=== PATIENT | female | born 1960 | race Caucasian/White ===

== ENCOUNTER 2020-03-30 09:41 | Inpatient (IN) | payer BC ==
[~2020-03-30] VITALS: Ht 152 cm; Wt 87.1 kg
[2020-03-30] MEDS ORDERED: NS IV 1000 ML 1,000 ML IV STA (09:52)
--- NOTE | 2020-03-30 09:56 | ED Syncope ---
General Stated Complaint: SYNCOPE Source of Information: Patient, Caregiver, RN/MD, RN Notes Reviewed Exam Limitations: No Limitations History of Present Illness Date Seen by Provider: March 30, 2020 Time Seen by Provider: 09:40 Initial Comments This patient is a 59-year-old female that presents to the emergency department for syncopal episode that happened while she was in the [facility] clinic next-door. Patient's been having issues with dark stool for the past couple weeks and also notes some blood this morning. Patient was sitting in a wheelchair trying to get up and had a syncopal episode. Patient states she does have a history of severe reflux issues and has to take Tums regularly. Patient denies having a history of taking a colonoscopy. Patient denies history of GI bleed. Patient states that she hasn't felt well in her stomach for the past couple weeks and had these dark stools. Having issues with lightheadedness for the past several days. Patient was recently started on iron due to anemia. Patient is awake alert and has no significant complaints right now. Patient states that she does have a history of hypertension and didn't take her hypertension medications this morning. On exam patient's blood pressure is 104/70. Patient states her blood pressure several about low. We'll do medical evaluation treatment is needed. Patient denies chest pain or headache. Timing/Prior Episodes: No Prior History Symptoms Prior to Episode: Lightheadedness, Nausea Precipitating Factors: Standing Loss of Consciousness: Brief (Seconds) Current Symptoms: Back to Normal; No Blurred Vision, No Chest Pain, No Diaphoresis, No Dizziness, No Headache, No Injury, No Lightheadedness, No Loss of Bladder Control, No Loss of Bowel Control, No Motionless, No Nausea, No Pale, No Shallow/Rapid Breathing, No Weak/Absent Pulse, No Weakness, No Other Allergies and Home Medications Allergies Coded Allergies: Penicillins (Unverified Adverse Reaction, Mild, rash, 03/30/20) lorcaserin (Unverified Adverse Reaction, Mild, Flu like symptoms, 03/30/20) naproxen (Unverified Adverse Reaction, Mild, Leg cramps, 03/30/20) Patient Home Medication List Home Medication List Reviewed: Yes Review of Systems Constitutional: No no symptoms reported; see HPI; No chills, No diaphoresis, No dizziness, No fever, No malaise, No weakness, No weight gain, No weight loss, No other EENTM: No see HPI, No no symptoms reported, No ear discharge, No hearing loss, No ear pain, No blurred vision, No double vision, No eye pain, No tearing, No vision loss, No dental problems, No hoarseness, No mouth pain, No mouth swelling, No epistaxis, No nose congestion, No nose pain, No throat pain, No throat swelling, No other Respiratory: No no symptoms reported, No see HPI, No cough, No dyspnea on e xertion, No hemoptysis, No orthopnea, No phlegm, No short of breath, No stridor, No wheezing, No other Cardiovascular: No no symptoms reported, No see HPI, No chest pain, No edema, No Hx of Intervention, No palpitations, No syncope, No vascular heart diseas, No other Gastrointestinal: No RUQ, No LUQ, No RLQ, No LLQ, No no symptoms reported, No see HPI, No abdominal pain, No constipation, No diarrhea, No dysphagia, No hematemesis, No heartburn, No jaundice, No loss of appetite; melena; No nausea, No vomiting, No other Musculoskeletal: No no symptoms reported, No see HPI, No back pain, No gout, No joint pain, No joint swelling, No muscle pain, No muscle stiffness, No muscle cramps, No muscle twitching, No muscle weakness, No neck pain, No other Skin: No no symptoms reported, No see HPI, No change in color, No change in hair/nails, No dryness, No hx of skin cancer, No lesions, No lumps, No pruritus, No rash, No other Psychiatric/Neurological: Denies No Symptoms Reported; See HPI; Denies Anxiety, Denies Depressed, Denies Emotional Problems, Denies Headache, Denies Numbness, Denies Paresthesia, Denies Pre-Existing Deficit, Denies Seizure, Denies Tingling, Denies Tremors; Weakness, Other All Other Systems Reviewed Negative Unless Noted: Yes Physical Exam Vital Signs Vital Signs - First Documented 03/30/20 09:41 Temp 35.9 Pulse 76 Resp 20 B/P (MAP) 101/58 (72) Pulse Ox 97 O2 Delivery Room Air Capillary Refill : Height, Weight, BMI Height: '" Weight: lbs. oz. kg; BMI Method: General Appearance: No Apparent Distress, WD/WN HEENT: PERRL/EOMI, TMs Normal, Normal ENT Inspection, Pharynx Normal Neck: Full Range of Motion, Normal Inspection, Non Tender, Supple Cardiovascular: Regular Rate, Rhythm, No Edema, No Gallop, No JVD, No Murmur, Normal Peripheral Pulses Respiratory: Chest Non Tender, Lungs Clear, Normal Breath Sounds, No Accessory Muscle Use, No Respiratory Distress Gastrointestinal: Normal Bowel Sounds, No Organomegaly, No Pulsatile Mass, Non Tender, Soft Neurologic/Psychiatric: Alert, Oriented x3, No Motor/Sensory Deficits, Normal Mood/Affect Coordination/Gait: Normal Finger to Nose, Normal Gait, Negative Romberg's Sign Motor/Sensory: No Motor Deficit, No Sensory Deficit, No Pronator Drift Skin: Normal Color, Warm/Dry Progress/Results/Core Measures Results/Orders Lab Results Laboratory Tests Test 03/30/20 09:50 Range/Units White Blood Count 6.8 4.3-11.0 10^3/uL Red Blood Count 3.44 L 4.35-5.85 10^6/uL Hemoglobin 9.6 L 11.5-16.0 G/DL Hematocrit 30 L 35-52 % Mean Corpuscular Volume 86 80-99 FL Mean Corpuscular Hemoglobin 28 25-34 PG Mean Corpuscular Hemoglobin Concent 33 32-36 G/DL Red Cell Distribution Width 17.4 H 10.0-14.5 % Platelet Count 360 130-400 10^3/uL Mean Platelet Volume 10.1 7.4-10.4 FL Neutrophils (%) (Auto) 46 42-75 % Lymphocytes (%) (Auto) 43 12-44 % Monocytes (%) (Auto) 8 0-12 % Eosinophils (%) (Auto) 2 0-10 % Basophils (%) (Auto) 1 0-10 % Neutrophils # (Auto) 3.1 1.8-7.8 X 10^3 Lymphocytes # (Auto) 3.0 1.0-4.0 X 10^3 Monocytes # (Auto) 0.5 0.0-1.0 X 10^3 Eosinophils # (Auto) 0.1 0.0-0.3 10^3/uL Basophils # (Auto) 0.1 0.0-0.1 10^3/uL Prothrombin Time 12.6 12.2-14.7 SEC INR Comment 0.9 0.8-1.4 Sodium Level 136 135-145 MMOL/L Potassium Level 4.1 3.6-5.0 MMOL/L Chloride Level 99 98-107 MMOL/L Carbon Dioxide Level 23 21-32 MMOL/L Anion Gap 14 5-14 MMOL/L Blood Urea Nitrogen 30 H 7-18 MG/DL Creatinine 0.76 0.60-1.30 MG/DL Estimat Glomerular Filtration Rate > 60 BUN/Creatinine Ratio 39 Glucose Level 157 H 70-105 MG/DL Calcium Level 9.6 8.5-10.1 MG/DL Corrected Calcium 9.7 8.5-10.1 MG/DL Total Bilirubin 0.3 0.1-1.0 MG/DL Aspartate Amino Transf (AST/SGOT) 15 5-34 U/L Alanine Aminotransferase (ALT/SGPT) 11 0-55 U/L Alkaline Phosphatase 63 40-136 U/L Troponin I < 0.30 <0.30 NG/ML Total Protein 6.5 6.4-8.2 GM/DL Albumin 3.9 3.2-4.5 GM/DL Amylase Level 113 25-125 U/L Lipase 69 8-78 U/L My Orders Orders - CHACHO MACDONALD MD Comprehensive Metabolic Panel (03/30/20 09:48) Lipase (03/30/20 09:48) Amylase (03/30/20 09:48) Ua Culture If Indicated (03/30/20 09:48) Ed Iv/Invasive Line Start (03/30/20 09:48) Acute Abd Series (03/30/20 09:48) Cbc With Automated Diff (03/30/20 09:48) Ekg Tracing (03/30/20 09:48) Orthostatic Vital Signs (Adult (03/30/20 09:48) Protime With Inr (03/30/20 09:48) Occult Blood Stool (03/30/20 09:48) Troponin I Fs (03/30/20 09:48) Ns Iv 1000 Ml (Sodium Chloride 0.9%) (03/30/20 09:52) Ct Head Wo (03/30/20 09:56) Ondansetron Injection (Zofran Injectio (03/30/20 10:14) Ondansetron Injection (Zofran Injectio (03/30/20 10:30) Medications Given in ED Current Medications Medications Dose Ordered Sig/Stew Route Start Time Stop Time Status Last Admin Dose Admin Ondansetron HCl 4 mg ONCE ONCE IVP 03/30/20 10:30 03/30/20 10:31 DC 03/30/20 10:45 4 MG Vital Signs/I&O 03/30/20 09:41 Temp 35.9 Pulse 76 Resp 20 B/P (MAP) 101/58 (72) Pulse Ox 97 O2 Delivery Room Air Progress Progress Note : Time: 10:05 Progress Note 1005 guaiac appears to be positive. 1025 patient getting upright x-rays in the x-ray department and had another syncopal episode. Patient placed back and spine position on stretcher patient feeling much better. Patient screwed describes significant lightheadedness and nausea. Patient has had no nausea. [address] scan the head negative x-rays. H&H is 9.6 and 30. Patient still complains of lightheadedness with sitting up. Concerning for possible significant hypovolemia related to a GI bleed. The patient's description of dark stools for the past 2 weeks. Believe the H&H most likely drop with fluid hydration. I did discuss at length with Dr. Flores library information technician physician for [facility] clinic for admission and [facility] she has accepted this patient for transfer. She request we notify general surgery for possible evaluation for colonoscopy and EGD. I did discuss at length with Dr. Tapia is agreed to see the patient. Patient be transferred via EMS to [facility]. Initial ECG Impression Date: March 30, 2020 Initial ECG Impression Time: 09:50 Initial ECG Rate: 77 Initial ECG Rhythm: Normal Sinus Initial ECG Intervals: Normal Initial ECG Impression: Normal Departure Impression Primary Impression: Syncope due to orthostatic hypotension Additional Impressions: GI bleed Weakness Disposition: XFER SHT-TRM HOSP Condition: Stable Admissions Decision to Admit Reason: Admit from ER (General) Decision to Admit/Date: March 30, 2020 Time/Decision to Admit Time: 11:40 Transfer Transfer Reason: Exceeds level of care Time Spoke to Accepting Phy: 11:[address] Flores and [facility]. Transfer Time: 11:40 Transfer Facility: [facility] Method of Transfer: EMS Departure-Patient Inst. Referrals: [facility] (PCP) Primary Care Physician SUKHJINDER CABALLERO APRN (Family) Primary Care Physician CHACHO MACDONALD MD March 30, 2020 09:56
[2020-03-30 10:01] LABS: HEMATOCRIT 30 % (35-52); HEMOGLOBIN 9.6 G/DL (11.5-16.0); MEAN CORPUSCULAR HEMOGLOBIN 28 PG (25-34); MEAN CORPUSCULAR HGB CONC 33 G/DL (32-36); MEAN CORPUSCULAR VOLUME 86 FL (80-99); PLATELET COUNT 360 10^3/uL (130-400); RED CELL DISTRIBUTION WIDTH 17.4 % (10.0-14.5); WHITE BLOOD COUNT 6.8 10^3/uL (4.3-11.0)
[2020-03-30 10:02] LABS: BASOPHILS # (AUTO) 0.1 10^3/uL (0.0-0.1); BASOPHILS % (AUTO) 1 % (0-10); EOSINOPHILS # (AUTO) 0.1 10^3/uL (0.0-0.3); EOSINOPHILS % (AUTO) 2 % (0-10); LYMPHOCYTES % (AUTO) 43 % (12-44); MEAN PLATELET VOLUME 10.1 FL (7.4-10.4); MONOCYTES # (AUTO) 0.5 X 10^3 (0.0-1.0); MONOCYTES % (AUTO) 8 % (0-12); NEUTROPHILS # (AUTO) 3.1 X 10^3 (1.8-7.8); NEUTROPHILS % (AUTO) 46 % (42-75)
[2020-03-30] MEDS ORDERED: ONDANSETRON 4 MG/2 ML (SDV) Z0FRAN ONE (10:14)
--- OUTSIDE RECORDS SUMMARY | 2020-03-30 10:15 | XMS REPORT | Continuity of Care Document ---
Demographics Preferred Language Unknown Marital Status Unknown Yarsani Affiliation Unknown Race Unknown Ethnic Group Unknown Author Organization Unknown Address Unknown Phone Unavailable Allergies There is no data. Medications There is no data. Problems There is no data. Procedures There is no data. Results Test Result Range Complete blood count (CBC) with automate d white blood cell (WBC) differential - 03/30/20 09:50 Blood leukocytes automated count (number/volume) 6.8 10*3/uL 4.3-11.0 Blood erythrocytes automated count (number/volume) 3.44 10*6/uL 4.35-5.85 Venous blood hemoglobin measurement (mass/volume) 9.6 g/dL 11.5-16.0 Blood hematocrit (volume fraction) 30 % 35-52 Automated erythrocyte mean corpuscular volume 86 [ foz_us] 80-99 Automated erythrocyte mean corpuscular h emoglobin (mass per erythrocyte) 28 pg 25-34 Automated erythrocyte mean corpuscular h emoglobin concentration measurement (mass/volume) 33 g/dL 32-36 Automated erythrocyte distribution width ratio 17. 4 % 10.0- 14.5 Automated blood platelet count (count/volume) 360 10*3/uL 130-400 Automated blood platelet mean volume measurement 10.1 [foz_us] 7.4-10.4 Automated blood neutrophils/100 leukocytes 46 % 42-75 Automated blood lymphocytes/100 leukocytes 43 % 12-44 Blood monocytes/100 leukocytes 8 % 0-12 Automated blood eosinophils/100 leukocytes 2 % 0-10 Automated blood basophils/100 leukocytes 1 % 0-10 Blood neutrophils automated count (number/volume) 3.1 10*3 1.8-7.8 Blood lymphocytes automated count (number/volume) 3.0 10*3 1.0-4.0 Blood monocytes automated count (number/volume) 0. 5 10*3 0.0-1.0 Automated eosinophil count 0.1 10*3/uL 0 .0-0.3 Automated blood basophil count (count/volume) 0.1 10*3/uL 0.0-0.1 Encounters ACCT No. Visit Date/Time Discharge Status Pt. Type Provider Facility Loc./Unit Complaint [id number] 03/30/2020 10:03:00 Document Registration
[2020-03-30 10:27] LABS: SODIUM 136 MMOL/L (135-145)
[2020-03-30 10:28] LABS: ALANINE AMINOTRANSFERASE 11 U/L (0-55); ALBUMIN 3.9 GM/DL (3.2-4.5); ALKALINE PHOSPHATASE 63 U/L (40-136); AMYLASE 113 U/L (25-125); BILIRUBIN,TOTAL 0.3 MG/DL (0.1-1.0); BUN/CREATININE RATIO 39; CALCIUM 9.6 MG/DL (8.5-10.1); CARBON DIOXIDE 23 MMOL/L (21-32); CHLORIDE 99 MMOL/L (98-107); CREATININE SERUM 0.76 MG/DL (0.60-1.30); GFR ESTIMATED > 60; GLUCOSE 157 MG/DL (70-105); LIPASE 69 U/L (8-78); POTASSIUM 4.1 MMOL/L (3.6-5.0); TOTAL PROTEIN 6.5 GM/DL (6.4-8.2)
[2020-03-30] MEDS ORDERED: ONDANSETRON 4 MG/2 ML (SDV) Z0FRAN IVP ONE (10:30)
--- NOTE | 2020-03-30 10:36 | Diagnostic Imaging Report ---
PROCEDURE: CT head without contrast. TECHNIQUE: Multiple contiguous axial images were obtained through the brain without the use of intravenous contrast. Auto Exposure Controls were utilized during the CT exam to meet ALARA standards for radiation dose reduction. INDICATION: Syncope. No prior studies are available for comparison. FINDINGS: The ventricles and sulci are within normal limits. No sulcal effacement or midline shift is detected. No acute intra-axial or extra-axial hemorrhage is detected. Cisterns are patent. Visualized paranasal sinuses are clear. IMPRESSION: No acute intracranial process is detected. Dictated by: Dictated on workstation # [id number]
--- NOTE | 2020-03-30 10:37 | Diagnostic Imaging Report ---
INDICATION: Syncope. TIME OF EXAM: 10:18 a.m. FINDINGS: The heart size is normal. There is a moderate-sized hiatal hernia. The lungs are clear. No free air is identified. The bowel gas pattern is nonobstructed. There is moderate stool in the left colon. No pathologic calcifications are identified. IMPRESSION: Moderate-sized hiatal hernia. No other significant abnormality is detected. Dictated by: Dictated on workstation # [id number]
[2020-03-30 10:39] LABS: INR 0.9 (0.8-1.4); PROTHROMBIN TIME PATIENT 12.6 SEC (12.2-14.7)
--- NOTE | 2020-03-30 11:22 | NUR ---
Blood pressure was a little soft, asked physician if I could start another liter. He agreed and pulled liter out of omnicell. Liter was started.
[2020-03-30] MEDS ORDERED: NS IV 1000 ML 1,000 ML IV ONE (12:00)
[2020-03-30 12:06] VITALS: BP 102/57
[2020-03-30 12:21] VITALS: BP 118/74
[2020-03-30 12:31] LABS: CLARITY,URINE CLEAR; COLOR,URINE YELLOW
[2020-03-30 12:32] LABS: BACTERIA,URINE FEW /HPF; BILIRUBIN,URINE NEGATIVE (NEGATIVE); GLUCOSE, URINE (UA) NEGATIVE (NEGATIVE); KETONES,URINE NEGATIVE (NEGATIVE); LEUKOCYTE ESTERASE ,URINE 1+ (NEGATIVE); NITRITE,URINE NEGATIVE (NEGATIVE); PROTEIN,URINE NEGATIVE (NEGATIVE)
--- NOTE | 2020-03-30 12:39 | NUR ---
was called at this time and updated. He was given a room number.
--- NOTE | 2020-03-30 12:45 | NUR ---
EMS arrived at this time. Report was given to CHRISTI Jarrett-P and JAMES LR. Care was tranferred at this time.
--- NOTE | 2020-03-30 13:36 | NUR ---
MALI CID admitted to room 422-1, with an admitting diagnosis of GI BLEED, on 03/30/20 from [facility] via [facility], accompanied by STAFF.MALI CID introduced to surroundings, call light, bed controls, phone, TV, temperature control, lights, meal times, smoking policy, visitor policy, side rail policy, bathrooms and showers. Patient Rights given to patient in the handbook.MALI CID verbalizes understanding that [facility] is not responsible for the loss or damage to any personal effects or valuables that are kept in the patients posession during their hospitalization. The following Patient Care Plans were discussed with the PT: Discharge Planning, PAIN CONTROL,IV THERAPY, and TESTS AND PROCEDURES. MALI CID verbalizes understanding of Interdisciplinary Patient Education. Patient and/or family were informed about the Rapid Response Team and its purpose.
[2020-03-30 13:43] VITALS: BP 121/86
[2020-03-30] MEDS ORDERED: CATHETER FLUSH 10 ML SYR IV PRN (14:00)
[2020-03-30] MEDS ORDERED: METF-397 PO ×2 (15:00)
[2020-03-30] MEDS ORDERED: HYDR-83 PO ×2 (15:00)
[2020-03-30] MEDS ORDERED: METO50TA15 PO ×2 (15:00)
[2020-03-30] MEDS ORDERED: FLUO20CA46 PO ×2 (15:00)
[2020-03-30] MEDS ORDERED: ALPR0.254 PO ×2 (15:00)
[2020-03-30] MEDS ORDERED: VITA400C60 PO ×2 (15:03)
[2020-03-30] MEDS ORDERED: MULT-1136 PO ×2 (15:03)
[2020-03-30] MEDS ORDERED: MAGN400T39 PO ×2 (15:03)
[2020-03-30] MEDS ORDERED: CHOL10002 PO ×2 (15:11)
--- NOTE | 2020-03-30 15:12 | NUR ---
SPOKE WITH THE PT AND WENT THRU THE EXT MED HISTORY TO COMPLETE THE MED REC PROTONIX 40MG WAS SENT TO [facility] TO BE FILLED TODAY BY SUKHJINDER CABALLERO HOWEVER THE PT NEVER PICKED IT UP OR STARTED SINCE SHE WAD ADMITTED HERE OTC MEDS: MTV VITAMIN E VITAMIN D MAGNESIUM
[2020-03-30] MEDS: HYDROcodone/APAP 5 MG/325 MG (LORTAB) TAB PO PRN ×2 (15:14→20:22)
[2020-03-30] MEDS: NS IV 1000 ML 1,000 ML IV SCH ×2 (15:20→20:26)
--- OUTSIDE RECORDS SUMMARY | 2020-03-30 15:26 | XMS REPORT | Continuity of Care Document ---
Demographics Preferred Language Unknown Marital Status Unknown Confucianist Affiliation Unknown Race Unknown Ethnic Group Unknown [...] blood basophil count (count/volume) 0.1 10*3/uL 0.0-0.1 TROPONIN I FS - 03/30/20 09:50 TROPONIN I FS < 0.30 <0.30 Comprehensive metabolic panel - 03/30/20 09:50 Serum or plasma sodium measurement (moles/volume) 136 mmol/L 135-145 Serum or plasma potassium measurement (moles/volume) 4.1 mmol/L 3.6-5.0 Serum or plasma chloride measurement (moles/volume) 99 mmol/L 98-107 Carbon dioxide 23 mmol/L 21-32 Serum or plasma anion gap determination (moles/volume) 14 mmol/L 5-14 Serum or plasma urea nitrogen measurement (mass/volume ) 30 mg/dL 7-18 Serum or plasma creatinine measurement (mass/volume) 0.76 mg/dL 0.60-1.30 Serum or plasma urea nitrogen/creatinine mass ratio 39 NRG Serum or plasma creatinine measurement w ith calculation of estimated glomerular filtration rate > NRG Serum or plasma glucose measurement (mass/volume) 157 mg/dL 70-105 Serum or plasma calcium measurement (mass/volume) 9.6 mg/dL 8.5-10.1 Serum or plasma total bilirubin measurement (mass/volu me) 0.3 mg/dL 0.1-1.0 Serum or plasma alkaline phosphatase junaid surement (enzymatic activity/volume) 63 U/L 40-136 Serum or plasma aspartate aminotransfera se measurement (enzymatic activity/volume) 15 U/L 5-34 Serum or plasma alanine aminotransferase measurement (enzymatic activity/volume) 11 U/L 0-55 Serum or plasma protein measurement (mass/volume) 6.5 g/dL 6.4-8.2 Serum or plasma albumin measurement (mass/volume) 3.9 g/dL 3.2-4.5 CALCIUM CORRECTED 9.7 mg/dL 8.5-10.1 Serum or plasma amylase measurement (enz ymatic activity/volume) - 03/30/20 09:50 Serum or plasma amylase measurement (enzymatic activit y/volume) 113 U/L 25-125 Lipase - 03/30/20 09:50 Lipase 69 U/L 8-78 PT panel in platelet poor plasma by coag ulation assay - 03/30/20 09:50 Prothrombin time (PT) in platelet poor plasma by coagu lation assay 12.6 s 12.2-14.7 INR in platelet poor plasma or blood by coagulation as say 0.9 0.8-1.4 Complete urinalysis with reflex to cultu re - 03/30/20 12:15 Urine color determination YELLOW NRG Urine clarity determination CLEAR NR G Urine pH measurement by test strip 6.0 5-9 Specific gravity of urine by test strip 1.020 1.016-1.022 Urine protein assay by test strip, semi-quantitative NEGATIVE NEGATIVE Urine glucose detection by automated test strip NE GATIVE NEGATIVE Erythrocytes detection in urine sediment by light micr oscopy NEGATIVE NEGATIVE Urine ketones detection by automated test strip NE GATIVE NEGATIVE Urine nitrite detection by test strip NEGATIVE NEGATIVE Urine total bilirubin detection by test strip NEGA TIVE NEGATIVE Urine urobilinogen measurement by automated test strip (mass/volume) 0.2 mg/dL < = 1.0 Urine leukocyte esterase detection by dipstick 1+ NEGATIVE Automated urine sediment erythrocyte cou nt by microscopy (number/high power field) NONE NRG Automated urine sediment leukocyte count by microscopy (number/high power field) [HPF] NRG Bacteria detection in urine sediment by light microsco py FEW NRG Squamous epithelial cells detection in u rine sediment by light microscopy 5-10 NRG Crystals detection in urine sediment by light microsco py NONE NRG Casts detection in urine sediment by light microscopy NONE NRG Mucus detection in urine sediment by light microscopy SMALL NRG Complete urinalysis with reflex to culture YES NRG Encounters ACCT No. Visit Date/Time Discharge Status Pt. Type Provider Facility Loc./Unit Complaint [id number] 03/30/2020 10:03:00 Document Registration
[2020-03-30 16:43] VITALS: BP 126/75
--- NOTE | 2020-03-30 16:46 | Consultation - Surgery ---
History of Present Illness History of Present Illness Patient Consulted On(yan/time) 03/30/20 16:23 Time Seen by Provider: 16:01 History of Present Illness Surgery asked to consult regarding Anemia and melena. HPI per ED: This patient is a 59-year-old female that presents to the emergency department for syncopal episode that happened while she was in the [facility] clinic next-door. Patient's been having issues with dark stool for the past couple weeks and also notes some blood this morning. Patient was sitting in a wheelchair trying to get up and had a syncopal episode. Patient states she does have a history of severe reflux issues and has to take Tums regularly. Patient denies having a history of taking a colonoscopy. Patient denies history of GI bleed. Patient states that she hasn't felt well in her stomach for the past couple weeks and had these dark stools. Having issues with lightheadedness for the past several days. Patient was recently started on iron due to anemia. Patient is awake alert and has no significant complaints right now. Patient states that she does have a history of hypertension and didn't take her hypertension medications this morning. On exam patient's blood pressure is 104/70. Patient states her blood pressure several about low. We'll do medical evaluation treatment is needed. Patient denies chest pain or headache. Timing/Prior Episodes: No Prior History Symptoms Prior to Episode: Lightheadedness, Nausea Precipitating Factors: Standing Loss of Consciousness: Brief (Seconds) Current Symptoms: Back to Normal; No Blurred Vision, No Chest Pain, No Diapho resis, No Dizziness, No Headache, No Injury, No Lightheadedness, No Loss of Bladder Control, No Loss of Bowel Control, No Motionless, No Nausea, No Pale, No Shallow/Rapid Breathing, No Weak/Absent Pulse, No Weakness, No Other When I spoke to the pt this afternoon she states she has been "feeling bad for past couple of weeks" and over last week noted black stools. The other day she saw "red in the toilet". She states this has never happened before. She has had an EGD and was told she had a hiatal hernia; took meds for a year or so but hasn't taken anything in the past few years. She states that she also has felt "acid reflux and bubbles in my chest, can't lay down to sleep; have to sleep sitting up". She stills feels weak and is afraid of having another episode where she blacks out. Allergies and Home Medications Allergies Coded Allergies: Penicillins (Unverified Adverse Reaction, Mild, rash, 03/30/20) lorcaserin (Unverified Adverse Reaction, Mild, Flu like symptoms, 03/30/20) naproxen (Unverified Adverse Reaction, Mild, Leg cramps, 03/30/20) Home Medications Alprazolam 0.25 Mg Tablet, 0.25 MG PO TID PRN for ANXIETY, (Reported) Cholecalciferol (Vitamin D3) 25 Mcg Tablet, 25 MCG PO DAILY, (Reported) Fluoxetine HCl 20 Mg Capsule, 20 MG PO 1600, (Reported) Hydrocodone/Acetaminophen 1 Each Tablet, 1 EA PO Q6H PRN for PAIN-MODERATE (5- 7), (Reported) Magnesium Oxide 400 Mg Tablet, 400 MG PO DAILY, (Reported) Metformin HCl 500 Mg Tablet, 500 MG PO HS, (Reported) Metoprolol Tartrate 50 Mg Tablet, 25 MG PO BID, (Reported) TAKES OF A 50MG TWICE DAILY Multivitamin 1 Each Tablet, 1 EACH PO DAILY, (Reported) Vitamin E Acetate 400 Unit Capsule, 400 UNIT PO DAILY, (Reported) Patient Home Medication List Home Medication List Reviewed: Yes Past Tppyasb-Loqrje-Sjyjvb Hx Patient Social History Alcohol Use: Denies Use Recreational Drug Use: No Smoking Status: Never a Smoker 2nd Hand Smoke Exposure: No Recent Foreign Travel: No Contact w/Someone Who Travel: No Recent Infectious Disease Expo: No Recent Hopitalizations: No Physical Abuse Screen: No Sexual Abuse: No Seasonal Allergies Seasonal Allergies: Yes (SOMETIMES) Surgeries History of Surgeries: Yes Respiratory History of Respiratory Disorde: No Cardiovascular History of Cardiac Disorders: Yes Cardiac Disorders: Hypertension Neurological History of Neurological Disord: Yes (DIZZY SPELL 15 YRS AGO( WAS TREATED WITH ANTIBIOTICS)) Genitourinary History of Genitourinary Disor: Yes (FREQ UTI'S YEARS AGO) Genitourinary Disorders: Kidney Stones Gastrointestinal History of Gastrointestinal Di: Yes (RECENT ACID REFLEX) Gastrointestinal Disorders: Gastroesophageal Reflux, Esophagitis, Hiatal Hernia Musculoskeletal History of Musculoskeletal Dis: Yes (Spinal Stenosis, FX LEFT WRIST. ) Musculoskeletal Disorders: Arthritis, Chronic Back Pain Endocrine History of Endocrine Disorders: Yes (Pre-Diabetes) HEENT History of HEENT Disorders: Yes (allergic rhinitis) Cancer History of Cancer: No Psychosocial History of Psychiatric Problem: Yes Behavioral Health Disorders: Anxiety Integumentary History of Skin or Integumenta: No Blood Transfusions History of Blood Disorders: No Adverse Reaction to a Blood Tr: No Family Medical History Significant Family History: CAD Under 55 Years Old, Diabetes, Hypertension Family Medial History: Diabetes mellitus 19 FATHER FH: heart disease 19 FATHER FH: stroke 19 MOTHER Hypertension 19 MOTHER G8 BROTHER G8 BROTHER Review of Systems-General Constitutional: No chills, No diaphoresis; weakness EENTM: No blurred vision, No double vision, No mouth pain, No mouth swelling, No epistaxis Respiratory: No cough, No dyspnea on exertion, No hemoptysis, No phlegm Cardiovascular: No chest pain, No edema, No palpitations Gastrointestinal: No abdominal pain, No dysphagia; heartburn; No jaundice, No nausea, No vomiting Genitourinary: No dysuria, No frequency, No hematuria Musculoskeletal: joint pain, muscle stiffness Skin: No change in color, No change in hair/nails Psychiatric/Neurological: Anxiety; Denies Depressed, Denies Seizure, Denies Tremors Other Pt denies any hx of abnormal bleeding or bruising Physical Exam-General Problems Physical Exam Vital Signs Vital Signs - First Documented 03/30/20 09:41 Temp 35.9 Pulse 76 Resp 20 B/P (MAP) 101/58 (72) Pulse Ox 97 O2 Delivery Room Air Capillary Refill : Less Than 3 Seconds General Appearance: WD/WN, no apparent distress Eyes: Bilateral Eye PERRL, Bilateral Eye EOMI HEENT: No scleral icterus (R), No scleral icterus (L); other (mucous membranes moist) Respiratory: chest non-tender, lungs clear, normal breath sounds, no respira tory distress, no accessory muscle use Cardiovascular: regular rate, rhythm, no murmur Gastrointestinal: normal bowel sounds, non tender, soft, no organomegaly, no pulsatile mass Back: no CVA tenderness, no vertebral tenderness Extremities: normal range of motion, non-tender, normal inspection, no pedal edema, no calf tenderness Neurologic/Psychiatric: 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, alert, normal mood/affect, oriented x 3 Skin: normal color, warm/dry Lymphatic: no adenopathy (neck, axilla or groin) Data Review Labs Laboratory Tests 03/30/20 09:50: White Blood Count 6.8, Red Blood Count 3.44L, Hemoglobin 9.6L, Hematocrit 30L, Mean Corpuscular Volume 86, Mean Corpuscular Hemoglobin 28, Mean Corpuscular Hemoglobin Concent 33, Red Cell Distribution Width 17.4H, Platelet Count 360, Mean Platelet Volume 10.1, Neutrophils (%) (Auto) 46, Lymphocytes (%) (Auto) 43, Monocytes (%) (Auto) 8, Eosinophils (%) (Auto) 2, Basophils (%) (Auto) 1, Neutrophils # (Auto) 3.1, Lymphocytes # (Auto) 3.0, Monocytes # (Auto) 0.5, Eosinophils # (Auto) 0.1, Basophils # (Auto) 0.1, Prothrombin Time 12.6, INR Comment 0.9, Sodium Level 136, Potassium Level 4.1, Chloride Level 99, Carbon Dioxide Level 23, Anion Gap 14, Blood Urea Nitrogen 30H, Creatinine 0.76, Estimat Glomerular Filtration Rate > 60, BUN/Creatinine Ratio 39, Glucose Level 157H, Calcium Level 9.6, Corrected Calcium 9.7, Total Bilirubin 0.3, Aspartate Amino Transf (AST/SGOT) 15, Alanine Aminotransferase (ALT/SGPT) 11, Alkaline Phosphatase 63, Troponin I < 0.30, Total Protein 6.5, Albumin 3.9, Amylase Level 113, Lipase 69 03/30/20 12:15: Urine Color YELLOW, Urine Clarity CLEAR, Urine pH 6.0, Urine Specific [place] 1.020, Urine Protein NEGATIVE, Urine Glucose (UA) NEGATIVE, Urine Ketones NEGATIVE, Urine Nitrite NEGATIVE, Urine Bilirubin NEGATIVE, Urine Urobilinogen 0.2, Urine Leukocyte Esterase 1+H, Urine RBC (Auto) NEGATIVE, Urine RBC NONE, Urine WBC 5-10H, Urine Squamous Epithelial Cells 5-10, Urine Crystals NONE, Urine Bacteria FEWH, Urine Casts NONE, Urine Mucus SMALLH, Urine Culture Indicated YES Assessment/Plan Assessment/Plan Assessment/Plan Anemia Melena DM, HTN Pt needs an EGD and Colonoscopy; she has never had colonoscopy "because I didn't want to do it". She states she will have a colonoscopy now. My recommendation would be to watch pt overnight, recheck H/H in the am, IV fluids and hold HTN meds. It is a little too late to give pt prep now and if she is stable I would recommend sending her home and doing procedures as an outpt on Friday. If she starts having hematochezia or her Hemoglobin is way down tomorrow; then we may need to consider starting prep tomorrow and doing endoscopies on Friday. I discussed the procedures with pt and went over risks and complications not limited to pain, bleeding, infection, intestinal or esophageal perforation and need for further procedure. All questions answered to her satisfaction. Will also start IV Protonix BID now and most likely will continue PO when she goes home. Clinical Quality Measures DVT/VTE Risk/Contraindication: Risk Factor Score Per Nursin RFS Level Per Nursing on Admit: 3=High BERNARDINO PAULA DO March 30, 2020 16:46
[2020-03-30 19:56] VITALS: BP 118/75
[2020-03-30] MEDS: PANTOPRAZOLE 40 MG (PROTONIX) VIAL IV SCH (20:20)
[2020-03-30] MEDS: ALPRAZolam 0.25 MG (XANAX) TAB PO PRN (20:21)
[2020-03-31 00:43] VITALS: BP 128/76
[2020-03-31] MEDS: NS IV 1000 ML 1,000 ML IV SCH ×4 (03:43→23:33)
[2020-03-31 04:00] VITALS: BP 137/85
[2020-03-31 05:40] LABS: BASOPHILS % (AUTO) 1 % (0-10); EOSINOPHILS # (AUTO) 0.1 10^3/uL (0.0-0.3); EOSINOPHILS % (AUTO) 1 % (0-10); HEMATOCRIT 22 % (35-52); LYMPHOCYTES # (AUTO) 1.8 X 10^3 (1.0-4.0); LYMPHOCYTES % (AUTO) 41 % (12-44); MEAN CORPUSCULAR HGB CONC 32 G/DL (32-36); MEAN CORPUSCULAR VOLUME 88 FL (80-99); MEAN PLATELET VOLUME 10.4 FL (7.4-10.4); MONOCYTES # (AUTO) 0.5 X 10^3 (0.0-1.0); MONOCYTES % (AUTO) 10 % (0-12); NEUTROPHILS # (AUTO) 2.1 X 10^3 (1.8-7.8); NEUTROPHILS % (AUTO) 48 % (42-75); PLATELET COUNT 289 10^3/uL (130-400); RED CELL DISTRIBUTION WIDTH 18.2 % (10.0-14.5); WHITE BLOOD COUNT 4.5 10^3/uL (4.3-11.0)
[2020-03-31 05:41] LABS: MEAN CORPUSCULAR HEMOGLOBIN 29 PG (25-34)
[2020-03-31 05:58] LABS: ALANINE AMINOTRANSFERASE 8 U/L (0-55); ALBUMIN 3.2 GM/DL (3.2-4.5); ALKALINE PHOSPHATASE 42 U/L (40-136); BILIRUBIN,TOTAL 0.3 MG/DL (0.1-1.0); BUN/CREATININE RATIO 23; CALCIUM 7.8 MG/DL (8.5-10.1); CARBON DIOXIDE 18 MMOL/L (21-32); CHLORIDE 112 MMOL/L (98-107); CREATININE SERUM 0.73 MG/DL (0.60-1.30); GFR ESTIMATED > 60; GLUCOSE 109 MG/DL (70-105); POTASSIUM 3.5 MMOL/L (3.6-5.0); SODIUM 140 MMOL/L (135-145); TOTAL PROTEIN 5.3 GM/DL (6.4-8.2)
[2020-03-31] MEDS: PANTOPRAZOLE 40 MG (PROTONIX) VIAL IV SCH ×2 (06:30→20:11)
[2020-03-31] MEDS: HYDROcodone/APAP 5 MG/325 MG (LORTAB) TAB PO PRN ×3 (06:55→21:04)
[2020-03-31] MEDS: ALPRAZolam 0.25 MG (XANAX) TAB PO PRN ×3 (06:55→21:03)
[2020-03-31 07:44] VITALS: BP 118/77
--- NOTE | 2020-03-31 10:49 | Physician Query Clarification ---
PQ-Further Specificity Admission/Discharge Admission Date: March 30, 2020 at 12:30 Discharge Date: The medical record reflects the following clinical scenario: History/Risk Factors: Melena Anemia Reflux Clinical Findings:03/30 Hgb 9.6 dropping to 7.0. Treatment:Surgical consult-Possible EGD with colonoscopy. Protonix BID, IV fluids, H/H ordered. Question: Can you further specify Anemia per the clinical indicators above? Please document a response in the Progress Notes or Discharge Summary. 1. Acute blood loss anemia. 2. Chronic blood loss anemia. 3. Other, with explanation of the clinical findings. 4. Clinically undetermined, no explanation for the clinical findings. Please remember a lack of response to the above will prompt a phone page by CDI/Coding staff. In responding to this query, please exercise your independent professional judgment. The purpose of this communication is to more accurately reflect the complexity of your patients condition. The fact that a question is asked does not imply that any particular answer is desired or expected. Thank you for your timely response to this clarification. Requestors name: Monik Mcdonald [facility] Phone # ext [phone] or [phone] THIS PHYSICIAN QUERY FORM IS A PERMANENT PART OF THE MEDICAL RECORD MONIK MCDONALD March 31, 2020 10:49 SHAUN LAWRENCE April 04, 2020 09:40
[2020-03-31] MEDS ORDERED: NS IV 500 ML 500 ML IV SCH (10:56)
[2020-03-31] MEDS ORDERED: IRON DEXTRAN INJECTION 1,000 MG in NS (IVPB) 250 ML IV ONE (11:00)
[2020-03-31] MEDS ORDERED: IRON DEXTRAN INJECTION 25 MG in NS (IVPB) 5.75 ML IV NR (11:00)
[2020-03-31] MEDS ORDERED: HYDROCORTISONE 100 MG/2 ML (Solu-CORTEF) VIAL IV PRN (11:00)
[2020-03-31] MEDS ORDERED: EPINEPHrine INJECTION 1 MG/ML AMP IM PRN (11:00)
[2020-03-31] MEDS ORDERED: RT-ALBUTEROL SULF 2.5 MG/3 ML PRE-MIX VIAL IH PRN (11:00)
[2020-03-31] MEDS ORDERED: diphenhydrAMINE 50 MG/ML INJ (BENADRYL) IV PRN (11:00)
--- NOTE | 2020-03-31 11:05 | Progress Note - Surgery ---
Subjective Time Seen by a Provider: 10:46 Subjective/Events-last exam Pt seen and examined, states she feels weaker today; "I'm still getting up to go to the bathroom, but I don't think I could do what I normally do at home". Pt denies abdominal pain and reports another black BM early this am. Review of Systems General: Fatigue Pulmonary: No Dyspnea, No Cough Cardiovascular: No: Chest Pain, Palpitations Gastrointestinal: No: Nausea, Vomiting, Abdominal Pain Objective Exam Vital Signs Date Time Temp Pulse Resp B/P (MAP) Pulse Ox O2 Delivery O2 Flow Rate FiO2 03/31/20 07:44 36.7 101 18 118/77 (91) 98 Room Air 03/31/20 06:55 36.9 03/31/20 04:00 36.9 103 18 137/85 (102) 100 Room Air 03/31/20 00:43 36.9 97 18 128/76 (93) 99 Room Air 03/30/20 21:51 100 Room Air 03/30/20 20:22 36.4 03/30/20 19:56 36.4 89 16 118/75 (89) 100 Room Air 03/30/20 16:43 36.3 74 16 126/75 (92) 100 Room Air 03/30/20 14:30 98 Room Air 03/30/20 13:43 36.1 87 20 121/86 97 Room Air 03/30/20 12:32 36.1 84 16 118/74 100 Room Air 03/30/20 12:21 118/74 (89) 03/30/20 12:06 36.1 85 16 102/57 (72) 100 Room Air I & O 03/31/20 07:00 Intake Total 3400 ml Output Total 3050 ml Balance 350 ml Capillary Refill : Less Than 3 SecondsLess Than 3 Seconds General Appearance: No Apparent Distress, WD/WN HEENT: PERRL/EOMI, Moist Mucous Membranes Neck: Full Range of Motion, Normal Inspection, Non Tender, Supple Respiratory: Chest Non Tender, Lungs Clear, Normal Breath Sounds, No Accessory Muscle Use, No Respiratory Distress Cardiovascular: Regular Rate, Rhythm, No Murmur, Normal Peripheral Pulses Gastrointestinal: normal bowel sounds, non tender, soft, no organomegaly, no pulsatile mass Extremity: No Calf Tenderness, No Pedal Edema Neurologic/Psychiatric: Alert, Oriented x3, Normal Mood/Affect Skin: Normal Color, Warm/Dry Results Lab Laboratory Tests 03/30/20 12:15: Urine Color YELLOW, Urine Clarity CLEAR, Urine pH 6.0, Urine Specific [place] 1.020, Urine Protein NEGATIVE, Urine Glucose (UA) NEGATIVE, Urine Ketones NEGATI VE, Urine Nitrite NEGATIVE, Urine Bilirubin NEGATIVE, Urine Urobilinogen 0.2, Urine Leukocyte Esterase 1+H, Urine RBC (Auto) NEGATIVE, Urine RBC NONE, Urine WBC 5-10H, Urine Squamous Epithelial Cells 5-10, Urine Crystals NONE, Urine Bacteria FEWH, Urine Casts NONE, Urine Mucus SMALLH, Urine Culture Indicated YES 03/31/20 04:00: White Blood Count 4.5, Red Blood Count 2.44L, Hemoglobin 7.0L, Hematocrit 22L, Mean Corpuscular Volume 88, Mean Corpuscular Hemoglobin 29, Mean Corpuscular Hemoglobin Concent 32, Red Cell Distribution Width 18.2H, Platelet Count 289, Mean Platelet Volume 10.4, Neutrophils (%) (Auto) 48, Lymphocytes (%) (Auto) 41, Monocytes (%) (Auto) 10, Eosinophils (%) (Auto) 1, Basophils (%) (Auto) 1, Neutrophils # (Auto) 2.1, Lymphocytes # (Auto) 1.8, Monocytes # (Auto) 0.5, Eosinophils # (Auto) 0.1, Basophils # (Auto) 0.0, Sodium Level 140, Potassium Level 3.5L, Chloride Level 112#H, Carbon Dioxide Level 18L, Anion Gap 10, Blood Urea Nitrogen 17, Creatinine 0.73, Estimat Glomerular Filtration Rate > 60, BUN/Creatinine Ratio 23, Glucose Level 109H, Calcium Level 7.8L, Corrected Calcium 8.4L, Total Bilirubin 0.3, Aspartate Amino Transf (AST/SGOT) 13, Alanine Aminotransferase (ALT/SGPT) 8, Alkaline Phosphatase 42, Total Protein 5.3L, Albumin 3.2 Assessment/Plan Assessment/Plan Assessment/Plan Anemia Melena Hypokalemia DM, HTN Pt's hemoglobin dropped to 7 today and therefore needs an EGD and Colonoscopy this admission. Will start prep and plan for EGD/Colonoscopy tomorrow. Will also start Infed iron infusion and replace her potassium; continue IV fluids and hold HTN meds. We discussed possible need for blood transfusion (risks and complications) but will hold off for now; unless she becomes more symptomatic. Will continue the IV Protonix BID; pt encouraged to drink lots of clear liquids to help flush out intestines for procedure tomorrow. NPO after midnight and consent ordered. Clinical Quality Measures DVT/VTE Risk/Contraindication: Risk Factor Score Per Nursin RFS Level Per Nursing on Admit: 3=High BERNARDINO PAULA DO March 31, 2020 11:05
[2020-03-31 11:28] VITALS: BP 131/81
[2020-03-31] MEDS ORDERED: BISACODYL 5 MG (DULCOLAX) TABLET PO SCH ×2 (12:00→15:00)
[2020-03-31] MEDS: POTASSIUM CL 10MEQ/50ML IVPB 50 ML IV SCH ×3 (15:59→18:50)
[2020-03-31 16:49] VITALS: BP 162/98
--- NOTE | 2020-03-31 17:49 | History & Physical ---
HPI History of Present Illness: 59 yo F that presented to [facility] to see her PCP when she passed out during the visit. States that she had been getting more fatigued over the last few weeks. 1 week ago she noticed blood in her stool and that is why she made the appt. She was then taken to the [place] [facility] and found to have anemia. Denies any recent illness or travel. She has been taking her blood pressure and DM medications. Denies any missed doses. Never had colonoscopy Source: patient Date seen by provider: March 31, 2020 Time Seen by Provider: 11:15 Attending Physician Marcel Flores MD PCP Center/[facility] Consult Date of Admission March 30, 2020 at 12:30 Home Medications Home Medications Reviewed patient Home Medication Reconciliation performed by pharmacy medication reconciliations railway signal technician and/or nursing. Patients Allergies have been reviewed. Allergies Coded Allergies: Penicillins (Unverified Adverse Reaction, Mild, rash, 03/30/20) lorcaserin (Unverified Adverse Reaction, Mild, Flu like symptoms, 03/30/20) naproxen (Unverified Adverse Reaction, Mild, Leg cramps, 03/30/20) GQD-Loznee-Rwanlg Hx Patient Social History Alcohol Use: Denies Use Recreational Drug Use: No Smoking Status: Never a Smoker 2nd Hand Smoke Exposure: No Recent Foreign Travel: No Contact w/other who traveled: No Recent Hopitalizations: No Recent Infectious Disease Expo: No Physical Abuse Screen: No Sexual Abuse: No Past Medical History NIDDM HTN Family Medical History Significant Family History: CAD Under 55 Years Old, Diabetes, Hypertension Family History: Diabetes mellitus 19 FATHER FH: heart disease 19 FATHER FH: stroke 19 MOTHER Hypertension 19 MOTHER G8 BROTHER G8 BROTHER Review of Systems ([facility]) Constitutional: No chills, No fever; malaise, weakness EENTM: no symptoms reported; No mouth pain, No nose congestion, No nose pain Respiratory: No cough; dyspnea on exertion; No short of breath Cardiovascular: no symptoms reported; No chest pain, No edema, No palpitations Gastrointestinal: No abdominal pain; loss of appetite, melena Genitourinary: no symptoms reported; No dysuria, No frequency, No hematuria : No Musculoskeletal: no symptoms reported Skin: no symptoms reported Psychiatric/Neurological: Weakness, Other (dizziness) Reviewed Test Results Reviewed Test Results Lab Laboratory Tests Test 03/31/20 04:00 Range/Units White Blood Count 4.5 4.3-11.0 10^3/uL Red Blood Count 2.44 L 4.35-5.85 10^6/uL Hemoglobin 7.0 L 11.5-16.0 G/DL Hematocrit 22 L 35-52 % Mean Corpuscular Volume 88 80-99 FL Mean Corpuscular Hemoglobin 29 25-34 PG Mean Corpuscular Hemoglobin Concent 32 32-36 G/DL Red Cell Distribution Width 18.2 H 10.0-14.5 % Platelet Count 289 130-400 10^3/uL Mean Platelet Volume 10.4 7.4-10.4 FL Neutrophils (%) (Auto) 48 42-75 % Lymphocytes (%) (Auto) 41 12-44 % Monocytes (%) (Auto) 10 0-12 % Eosinophils (%) (Auto) 1 0-10 % Basophils (%) (Auto) 1 0-10 % Neutrophils # (Auto) 2.1 1.8-7.8 X 10^3 Lymphocytes # (Auto) 1.8 1.0-4.0 X 10^3 Monocytes # (Auto) 0.5 0.0-1.0 X 10^3 Eosinophils # (Auto) 0.1 0.0-0.3 10^3/uL Basophils # (Auto) 0.0 0.0-0.1 10^3/uL Sodium Level 140 135-145 MMOL/L Potassium Level 3.5 L 3.6-5.0 MMOL/L Chloride Level 112 #H 98-107 MMOL/L Carbon Dioxide Level 18 L 21-32 MMOL/L Anion Gap 10 5-14 MMOL/L Blood Urea Nitrogen 17 7-18 MG/DL Creatinine 0.73 0.60-1.30 MG/DL Estimat Glomerular Filtration Rate > 60 BUN/Creatinine Ratio 23 Glucose Level 109 H 70-105 MG/DL Calcium Level 7.8 L 8.5-10.1 MG/DL Corrected Calcium 8.4 L 8.5-10.1 MG/DL Total Bilirubin 0.3 0.1-1.0 MG/DL Aspartate Amino Transf (AST/SGOT) 13 5-34 U/L Alanine Aminotransferase (ALT/SGPT) 8 0-55 U/L Alkaline Phosphatase 42 40-136 U/L Total Protein 5.3 L 6.4-8.2 GM/DL Albumin 3.2 3.2-4.5 GM/DL Physical Exam-([facility]) Physical Exam Vital Signs VS - Last 72 Hours, by Label 03/30/20 03/30/20 03/30/20 03/30/20 09:41 12:06 12:21 12:32 Temp 35.9 36.1 36.1 Pulse 76 85 84 Resp 20 16 16 B/P (MAP) 101/58 (72) 102/57 (72) 118/74 (89) 118/74 Pulse Ox 97 100 100 O2 Delivery Room Air Room Air Room Air 03/30/20 03/30/20 03/30/20 03/30/20 13:43 14:30 16:43 19:56 Temp 36.1 36.3 36.4 Pulse 87 74 89 Resp 20 16 16 B/P (MAP) 121/86 126/75 (92) 118/75 (89) Pulse Ox 97 98 100 100 O2 Delivery Room Air Room Air Room Air Room Air 03/30/20 03/30/20 03/31/20 03/31/20 20:22 21:51 00:43 04:00 Temp 36.4 36.9 36.9 Pulse 97 103 Resp 18 18 B/P (MAP) 128/76 (93) 137/85 (102) Pulse Ox 100 99 100 O2 Delivery Room Air Room Air Room Air 03/31/20 03/31/20 03/31/20 03/31/20 06:55 07:44 09:00 11:28 Temp 36.9 36.7 36.6 Pulse 101 119 Resp 18 18 B/P (MAP) 118/77 (91) 131/81 (98) Pulse Ox 98 98 100 O2 Delivery Room Air Room Air Room Air 03/31/20 16:49 Temp 36.4 Pulse 105 Resp 16 B/P (MAP) 162/98 (119) Pulse Ox 98 O2 Delivery Room Air Capillary Refill : Less Than 3 SecondsLess Than 3 Seconds General Appearance: WD/WN, no apparent distress HEENT: PERRL/EOMI Neck: non-tender, full range of motion, supple Respiratory: chest non-tender, lungs clear, normal breath sounds, no respiratory distress, no accessory muscle use Cardiovascular: normal peripheral pulses, regular rate, rhythm, no murmur Gastrointestinal: normal bowel sounds, non tender, soft, no organomegaly Rectal: heme positive stool ([facility]) Back: no CVA tenderness, no vertebral tenderness Extremities: non-tender, normal inspection, no pedal edema, no calf tenderness, normal capillary refill 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, no motor/sensory deficits, alert, normal mood/affect, oriented x 3 Skin: normal color, warm/dry Lymphatic: no adenopathy Assessment/Plan Assessment/Plan Admission Status: Inpatient Order (span 2 midnights) Reason for Inpatient Admission: Requires surgery workup (1) Syncope due to orthostatic hypotension Status: Acute Assessment & Plan: - IVFs, monitor Hgb for possible transfusion (2) Melena Status: Acute Assessment & Plan: - Dr Tapia consulted and appreciate recommendations, plan for scope in AM (3) Anemia due to acute blood loss Status: Acute (4) Non-insulin dependent type 2 diabetes mellitus Status: Chronic (5) HTN (hypertension) Status: Chronic Assessment & Plan: - Holding meds due to orthostatic hypotension Qualifiers: Qualified Codes: I10 - Essential (primary) hypertension (6) Hypokalemia Status: Acute Clinical Quality Measures DVT/VTE Risk/Contraindication: Risk Factor Score Per Nursin RFS Level Per Nursing on Admit: 3=High MARCEL FLORES MD March 31, 2020 17:49
[2020-03-31] MEDS ORDERED: polyethylene glycoL Bowel Prep(MIRALAX) 238 GM PO SCH (18:00)
[2020-03-31 20:10] VITALS: BP 153/97
[2020-04-01] VITALS (10 sets, daily range): BP systolic 87–149; BP diastolic 53–87
[2020-04-01] MEDS: NS IV 1000 ML 1,000 ML IV SCH ×2 (02:42→12:04)
[2020-04-01 05:23] LABS: BASOPHILS % (AUTO) 1 % (0-10); EOSINOPHILS % (AUTO) 1 % (0-10); LYMPHOCYTES # (AUTO) 1.8 X 10^3 (1.0-4.0); LYMPHOCYTES % (AUTO) 33 % (12-44); MEAN CORPUSCULAR HEMOGLOBIN 28 PG (25-34); MEAN CORPUSCULAR HGB CONC 32 G/DL (32-36); MEAN CORPUSCULAR VOLUME 89 FL (80-99); MEAN PLATELET VOLUME 9.2 FL (7.4-10.4); MONOCYTES # (AUTO) 0.5 X 10^3 (0.0-1.0); MONOCYTES % (AUTO) 9 % (0-12); NEUTROPHILS # (AUTO) 3.1 X 10^3 (1.8-7.8); NEUTROPHILS % (AUTO) 57 % (42-75); PLATELET COUNT 297 10^3/uL (130-400); RED CELL DISTRIBUTION WIDTH 18.9 % (10.0-14.5); WHITE BLOOD COUNT 5.4 10^3/uL (4.3-11.0)
[2020-04-01 05:35] LABS: CHLORIDE 116 MMOL/L (98-107); POTASSIUM 3.6 MMOL/L (3.6-5.0); SODIUM 144 MMOL/L (135-145)
[2020-04-01 05:36] LABS: CALCIUM 8.3 MG/DL (8.5-10.1)
[2020-04-01 05:37] LABS: GLUCOSE 103 MG/DL (70-105)
[2020-04-01 05:38] LABS: CARBON DIOXIDE 19 MMOL/L (21-32); HEMOGLOBIN 6.4 G/DL (11.5-16.0)
[2020-04-01 05:39] LABS: HEMATOCRIT 20 % (35-52)
[2020-04-01] MEDS: ALPRAZolam 0.25 MG (XANAX) TAB PO PRN ×2 (05:40→14:27)
[2020-04-01] MEDS: HYDROcodone/APAP 5 MG/325 MG (LORTAB) TAB PO PRN ×2 (05:40→14:27)
[2020-04-01 05:41] LABS: BUN/CREATININE RATIO 7; GFR ESTIMATED > 60
[2020-04-01] MEDS: PANTOPRAZOLE 40 MG (PROTONIX) VIAL IV SCH (07:51)
[2020-04-01] MEDS ORDERED: LACTATED RINGERS 1,000 ML IV ONE (08:46)
--- NOTE | 2020-04-01 08:50 | NUR ---
Pt taken off floor with surgery staff.
[2020-04-01] MEDS ORDERED: LACTATED RINGERS 1,000 ML IV STA (08:58)
[2020-04-01] MEDS ORDERED: HURRICAINE EXT TUBE (BENZOCAINE) XX PRN (09:00)
[2020-04-01] MEDS ORDERED: PROPOFOL INJECTION 50 ML IV ONE (09:22)
[2020-04-01] MEDS ORDERED: MIDAZOLAM 2 MG/2 ML (VERSED) VIAL ONE (09:22)
[2020-04-01] MEDS ORDERED: HURRICAINE EXT TUBE (BENZOCAINE) ONE (09:23)
--- NOTE | 2020-04-01 10:14 | Progress Note-Post Operative ---
Post-Operative Progess Note Surgeon (s)/Adobe Layer (s) Surgeon BERNARDINO PAULA DO Adobe Layer: none Pre-Operative Diagnosis Anemia, Melena Post-Operative Diagnosis same plus Gastritis Hiatal Hernia Diverticula Internal hemorrhoids Procedure & Operative Findings Date of Procedure 04/01/20 Procedure Performed/Findings EGD with bx Colonoscopy Anesthesia Type IV sedation by PICK PACK WORKER Estimated Blood Loss Estimated blood loss (mL): scant Specimens/Packing Specimens Removed antral bx GE jxn bx BERNARDINO PAULA DO April 01, 2020 10:14
--- NOTE | 2020-04-01 10:30 | NUR ---
Pt back on floor at this time. Accompanied by endo staff.
--- NOTE | 2020-04-01 12:35 | OPERATIVE REPORT ---
DATE OF SERVICE: PREOPERATIVE DIAGNOSES: Anemia, melena. POSTOPERATIVE DIAGNOSES: Anemia, melena, plus gastritis, large hiatal hernia, diverticula and internal hemorrhoids. PROCEDURES: 1. EGD with biopsy. 2. Colonoscopy. SURGEON: Pascual Tapia DO STRAIGHTENING ROLL OPERATOR: None. ANESTHESIA: IV sedation by the STRUCTURAL STEEL WORKER HELPER. SPECIMEN: Biopsy of the antrum, biopsy of GE junction. BLOOD LOSS: Scant. FLUIDS: Per anesthesia. POSTOPERATIVE CONDITION: Stable. INDICATION FOR PROCEDURE: The patient is a 59-year-old female who is profoundly anemic. She was 6.4 today, having some black bowel movements, has never had a colonoscopy and needed a workup. FINDINGS: The patient had a large hiatal hernia. No ulcers seen. No obvious bleeding, no coffee ground liquid in the stomach or intestine. She had some diverticula, none actively bleeding and some very-very small internal hemorrhoids. No other obvious pathology. PROCEDURE NOTE: After informed consent was obtained, the patient was brought to the endoscopy suite, placed in bed in the left lateral decubitus position. She was administered IV sedation by the STRUCTURAL STEEL WORKER HELPER who then monitored her vitals the entire time, heart rate, blood pressure and pulse ox and the scope was inserted, started with the EGD, placed the scope down the mouth through the esophagus into the stomach, pushed towards the antrum, some very mild gastritis, pushed through into the duodenum. Duodenum looked fine, did not see any ulcers or any signs of active bleeding or old bleeding. Pulled back into the antrum, did a biopsy of the antrum. Retroflexed the scope, saw a large hiatal hernia, took a picture of this, did not see any ulcers in the stomach, pulled the scope up into the GE junction, did a biopsy of the GE junction, then pushed the scope into the stomach and suctioned all the air out. I then pulled the scope up the esophagus and out the mouth. Switched camera, switched gloves, went down below, started the colonoscopy. Pushed all the way into about 140 cm, able to get to the cecum, took a picture of appendiceal orifice, then able to get into terminal ileum, did not see any black liquid in the terminal ileum or any bleeding, took a picture and then pulled the scope into the cecum and then slowly withdrew the scope insufflating to look circumferentially at the navarro looking the cecum, up the ascending colon to the hepatic flexure, then down the transverse colon, splenic flexure, into the descending colon and then down in the distal portion of the descending colon and sigmoid colon, saw some diverticula, no active signs of bleeding, no black leaking out of the diverticula either, continued down through the sigmoid into the rectum, retroflexed in rectal vault, saw some very minimal internal hemorrhoids. No other obvious pathology. Scope was removed. The patient tolerated the procedure, recovered in endoscopy suite. Job ID: [id number] DocumentID: [id number] Dictated Date: 04/01/2020 10:17:44 Voice Network Engineer Date: 04/01/2020 12:35:02 Dictated By: PASCUAL TAPIA DO
[2020-04-01] MEDS ORDERED: NS IV 500 ML 500 ML IV SCH (12:45)
[2020-04-01] MEDS ORDERED: IRON150C3 PO ×2 (14:01)
--- NOTE | 2020-04-01 14:03 | Discharge Summary ---
Discharge Summary Hospital Course Was the Problem List Reviewed?: Yes Hospital Course Date of Admission: March 30, 2020 at 12:30 Admission Diagnosis : Family Physician/Provider: Jayla Linares Aprn Date of Discharge: 04/01/20 Discharge Diagnosis: syncope at [facility] clinic, GIB, EGD/Colonoscopy without source of rapid blood loss Hospital Course: Patient was sent to ER due to syncope and found to have bloody stools and anemia and Dr Tapia consulted. Hgb today was 6.4 on day of DC so she was given 1 unit of blood the day after 1000mg of IV iron given to provide iron to produce rbc's. Patient had no concerns at time of DC but I told her to limit her activity and monitor dizziness since she would still experience that at hgb of low 7.0 but she will have Hgb drawn on Friday and have close f/u with [facility] and Dr Tapia. Labs and Pending Lab Test: Laboratory Tests 03/31/20 19:15: Stool Occult Blood Immunoassay NEGATIVE 04/01/20 05:14: White Blood Count 5.4, Red Blood Count 2.27L, Hemoglobin 6.4*L, Hematocrit 20*L, Mean Corpuscular Volume 89, Mean Corpuscular Hemoglobin 28, Mean Corpuscular Hemoglobin Concent 32, Red Cell Distribution Width 18.9H, Platelet Count 297, Mean Platelet Volume 9.2, Neutrophils (%) (Auto) 57, Lymphocytes (%) (Auto) 33, Monocytes (%) (Auto) 9, Eosinophils (%) (Auto) 1, Basophils (%) (Auto) 1, Neutrophils # (Auto) 3.1, Lymphocytes # (Auto) 1.8, Monocytes # (Auto) 0.5, Eosinophils # (Auto) 0.0, Basophils # (Auto) 0.0, Sodium Level 144, Potassium Level 3.6, Chloride Level 116H, Carbon Dioxide Level 19L, Anion Gap 9, Blood Urea Nitrogen 5L, Creatinine 0.70, Estimat Glomerular Filtration Rate > 60, BUN/Creatinine Ratio 7, Glucose Level 103, Calcium Level 8.3L Microbiology 03/31/20 MRSA Screen - Final, Complete MRSA not isolated 03/30/20 Urine Culture - Final, Complete 3 or more isolates Home Meds Active Ferrex 150 (Iron Polysaccharide Complex) 150 Mg Capsule 150 Mg PO BID WITH MEALS Reported Vitamin D3 (Cholecalciferol (Vitamin D3)) 25 Mcg Tablet 25 Mcg PO DAILY Magnesium (Magnesium Oxide) 400 Mg Tablet 400 Mg PO DAILY Vitamin E (Vitamin E Acetate) 400 Unit Capsule 400 Unit PO DAILY Multivitamin 1 Each Tablet 1 Each PO DAILY Fluoxetine HCl 20 Mg Capsule 20 Mg PO 1600 Alprazolam 0.25 Mg Tablet 0.25 Mg PO TID PRN Hydrocodone-Acetamin 5-325 mg (Hydrocodone/Acetaminophen) 1 Each Tablet 1 Ea PO Q6H PRN Metoprolol Tartrate 50 Mg Tablet 25 Mg PO BID TAKES OF A 50MG TWICE DAILY Metformin HCl 500 Mg Tablet 500 Mg PO HS Assessment/Pt Instructions [facility] this week on Friday for hgb check Discharge Planning: <30 minutes discharge planning Discharge Instructions Discharge Diet: No Restrictions Pneumonia Vaccine Order Indica: Yes Discharge Physical Examination Vital Signs Vital Signs Date Time Temp Pulse Resp B/P (MAP) Pulse Ox O2 Delivery O2 Flow Rate FiO2 04/01/20 13:40 36.0 95 18 131/72 (91) 94 Room Air 04/01/20 10:10 10 General Appearance: No Apparent Distress, WD/WN, Chronically ill Respiratory: Chest Non Tender, Lungs Clear, Normal Breath Sounds, No Accessory Muscle Use, No Respiratory Distress Cardiovascular: Regular Rate, Rhythm, No Edema, No Gallop, No JVD, No Murmur, Normal Peripheral Pulses Allergies: Coded Allergies: Penicillins (Unverified Adverse Reaction, Mild, rash, 03/30/20) lorcaserin (Unverified Adverse Reaction, Mild, Flu like symptoms, 03/30/20) naproxen (Unverified Adverse Reaction, Mild, Leg cramps, 03/30/20) Discharge Summary Date of Admission March 30, 2020 at 12:30 Date of Discharge Discharge Date: April 01, 2020 Clinical Quality Measures DVT/VTE Risk/Contraindication: Risk Factor Score Per Nursin RFS Level Per Nursing on Admit: 3=High AINSLEY ART DO April 01, 2020 14:03
== END 2020-04-01 16:30 | disposition home or self-care (01) | DRG 378 ==
LOC: EDUNIT# 09:41 → ER FS 09:42 → 4TH 12:30
PROVIDERS: ADMIT Family Medicine; ATTEND Family Medicine
PROC: 0DJD8ZZ Inspection of Lower Intestinal Tract, Via Natural or Artificial Opening Endoscopic (ICD-10-PCS; 2020-04-01)
PROC: 0DB78ZX Excision of Stomach, Pylorus, Via Natural or Artificial Opening Endoscopic, Diagnostic (ICD-10-PCS; principal; 2020-04-01 09:30)
PROC: 0DB48ZX Excision of Esophagogastric Junction, Via Natural or Artificial Opening Endoscopic, Diagnostic (ICD-10-PCS; 2020-04-01 09:30)
DX: K92.1 Melena (principal); D62 Acute posthemorrhagic anemia; I95.1 Orthostatic hypotension; E11.9 Type 2 diabetes mellitus without complications; I10 Essential (primary) hypertension; K21.9 Gastro-esophageal reflux disease without esophagitis; R53.1 Weakness; E87.6 Hypokalemia; K44.9 Diaphragmatic hernia without obstruction or gangrene; M19.91 Primary osteoarthritis, unspecified site; M54.9 Dorsalgia, unspecified; M48.00 Spinal stenosis, site unspecified; J30.9 Allergic rhinitis, unspecified; F41.9 Anxiety disorder, unspecified; Z87.19 Personal history of other diseases of the digestive system
CPT/HCPCS: 36415; 70450; 74022; 80048; 80053; 81000; 82150; 82274; 82728; 83540; 83690; 84484; 85025; 85610; 86850; 86900; 86901; 86920; 87081; 87088; 93005; 96361; 96374

== ENCOUNTER → 2020-04-03 | Outpatient (CLI) | payer BC ==
[~2020-04-03] MED LIST: ALPR0.254 PO; CHOL10002 PO; FLUO20CA46 PO; HYDR-83 PO; IRON150C3 PO; MAGN400T39 PO; METF-397 PO; METO50TA15 PO; MULT-1136 PO; VITA400C60 PO
[2020-04-03 07:51] LABS: HEMOGLOBIN 8.5 G/DL (11.5-16.0)
== END ==
LOC: LAB FS 07:16
PROVIDERS: ATTEND Internal Medicine
DX: D62 Acute posthemorrhagic anemia (principal)
CPT/HCPCS: 36415; 85014; 85018

== ENCOUNTER → 2020-04-05 | Outpatient (CLI) | payer BC ==
[2020-04-05 08:10] LABS: MEAN CORPUSCULAR HEMOGLOBIN 29 PG (25-34); WHITE BLOOD COUNT 5.7 10^3/uL (4.3-11.0)
[2020-04-05 08:11] LABS: BASOPHILS % (AUTO) 1 % (0-10); EOSINOPHILS % (AUTO) 3 % (0-10); HEMATOCRIT 28 % (35-52); LYMPHOCYTES % (AUTO) 33 % (12-44); MEAN CORPUSCULAR HGB CONC 32 G/DL (32-36); MEAN CORPUSCULAR VOLUME 93 FL (80-99); MEAN PLATELET VOLUME 9.8 FL (7.4-10.4); MONOCYTES % (AUTO) 9 % (0-12); PLATELET COUNT 427 10^3/uL (130-400); RED CELL DISTRIBUTION WIDTH 20.5 % (10.0-14.5)
[2020-04-05 08:12] LABS: BASOPHILS # (AUTO) 0.1 10^3/uL (0.0-0.1); EOSINOPHILS # (AUTO) 0.2 10^3/uL (0.0-0.3); LYMPHOCYTES # (AUTO) 1.9 X 10^3 (1.0-4.0); MONOCYTES # (AUTO) 0.5 X 10^3 (0.0-1.0); NEUTROPHILS % (AUTO) 54 % (42-75)
== END ==
LOC: LAB FS 07:10
PROVIDERS: ATTEND Nurse Practitioner Family
DX: D64.9 Anemia, unspecified (principal)
CPT/HCPCS: 36415; 85025

== ENCOUNTER → 2020-04-06 | Outpatient (CLI) | payer BC ==
[2020-04-06 07:55] LABS: BASOPHILS # (AUTO) 0.1 10^3/uL (0.0-0.1); BASOPHILS % (AUTO) 1 % (0-10); EOSINOPHILS # (AUTO) 0.3 10^3/uL (0.0-0.3); EOSINOPHILS % (AUTO) 5 % (0-10); HEMATOCRIT 29 % (35-52); HEMOGLOBIN 9.2 G/DL (11.5-16.0); LYMPHOCYTES # (AUTO) 1.7 X 10^3 (1.0-4.0); LYMPHOCYTES % (AUTO) 31 % (12-44); MEAN CORPUSCULAR HEMOGLOBIN 30 PG (25-34); MEAN CORPUSCULAR HGB CONC 32 G/DL (32-36); MEAN CORPUSCULAR VOLUME 93 FL (80-99); MEAN PLATELET VOLUME 9.3 FL (7.4-10.4); MONOCYTES # (AUTO) 0.5 X 10^3 (0.0-1.0); MONOCYTES % (AUTO) 9 % (0-12); NEUTROPHILS # (AUTO) 2.8 X 10^3 (1.8-7.8); NEUTROPHILS % (AUTO) 53 % (42-75); PLATELET COUNT 423 10^3/uL (130-400); RED CELL DISTRIBUTION WIDTH 20.8 % (10.0-14.5); WHITE BLOOD COUNT 5.3 10^3/uL (4.3-11.0)
== END ==
LOC: LAB FS 07:38
PROVIDERS: ATTEND Nurse Practitioner Family
DX: D64.9 Anemia, unspecified (principal)
CPT/HCPCS: 36415; 85025

== ENCOUNTER → 2020-04-20 | Outpatient (CLI) | payer BC ==
[2020-04-20 11:40] LABS: BASOPHILS % (AUTO) 2 % (0-10); EOSINOPHILS % (AUTO) 3 % (0-10); HEMATOCRIT 38 % (35-52); HEMOGLOBIN 12.2 G/DL (11.5-16.0); LYMPHOCYTES % (AUTO) 50 % (12-44); MEAN CORPUSCULAR HEMOGLOBIN 30 PG (25-34); MEAN CORPUSCULAR HGB CONC 32 G/DL (32-36); MEAN CORPUSCULAR VOLUME 94 FL (80-99); MEAN PLATELET VOLUME 9.7 FL (7.4-10.4); MONOCYTES % (AUTO) 9 % (0-12); NEUTROPHILS % (AUTO) 36 % (42-75); PLATELET COUNT 362 10^3/uL (130-400); RED CELL DISTRIBUTION WIDTH 16.9 % (10.0-14.5); WHITE BLOOD COUNT 4.5 10^3/uL (4.3-11.0)
[2020-04-20 11:41] LABS: BASOPHILS # (AUTO) 0.1 10^3/uL (0.0-0.1); EOSINOPHILS # (AUTO) 0.1 10^3/uL (0.0-0.3); LYMPHOCYTES # (AUTO) 2.2 X 10^3 (1.0-4.0); MONOCYTES # (AUTO) 0.4 X 10^3 (0.0-1.0); NEUTROPHILS # (AUTO) 1.6 X 10^3 (1.8-7.8)
== END ==
LOC: LAB FS 07:16
PROVIDERS: ATTEND Nurse Practitioner Family
DX: D64.9 Anemia, unspecified (principal)
CPT/HCPCS: 36415; 85025